=== PATIENT | female | born 1965 | race Caucasian/White ===

== ENCOUNTER 2023-01-05 08:41 | Emergency (ER) | payer OTHER ==
[~2023-01-05] VITALS: Ht 172.7 cm; Wt 99.3 kg
[2023-01-05 08:50] VITALS: O2SAT 97
[2023-01-05] MEDS ORDERED: CYCL10TA9 PO (09:27)
[2023-01-05] MEDS ORDERED: HYDR-3980 PO (09:27)
[2023-01-05] MEDS ORDERED: NAPR-1164 PO (10:21)
== END 2023-01-05 10:30 | disposition home or self-care (01) ==
LOC: ER 08:41
DX: S16.1XXA Strain of muscle, fascia and tendon at neck level, initial encounter (principal); S39.012A Strain of muscle, fascia and tendon of lower back, initial encounter; S49.81XA Other specified injuries of right shoulder and upper arm, initial encounter; Z79.899 Other long term (current) drug therapy; Z88.5 Allergy status to narcotic agent; W17.89XA Other fall from one level to another, initial encounter; Y93.89 Activity, other specified; Y92.89 Other specified places as the place of occurrence of the external cause; Y99.8 Other external cause status
CPT/HCPCS: 70450; 72125; 72131; A4606; A4663